=== PATIENT | male | born 1955 | race Caucasian/White ===

== ENCOUNTER 2024-01-03 07:46 | Emergency (ER) | payer MEDICARE, BC, SELFPAY ==
[2024-01-03] VITALS (9 sets, daily range): BP systolic 112–172; BP diastolic 73–90; PULSE 88
--- NOTE | 2024-01-03 08:24 | ED.GENMED ---
History of Present Illness
General
Chief Complaint: Pneumonia Symptoms
Source: patient and spouse
Exam Limitations: none
Time Seen by Provider: 01/03/24 08:07
Nursing documentation reviewed up to this point in time: agreed with
History of Present Illness
History of Present Illness:
Patient is a 68-year-old male with history of clotting disorder lupus anticoagulant. 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 Patient recently was diagnosed with
pneumonia 8 days ago at urgent care. He at that time had a fever of 101.8 and had left lung pneumonia seen on x-ray at urgent care. He was placed on doxycycline has been taking doxycycline 100 mg twice daily for the past week. He reports cough
and fevers are better however now he complains of' lung pain.' He complains of burning in his anterior rib chest area /epigastric region which is constant at times worse with deep breath. He does not feel short of breath. He does report symptoms
seem to start after he was coughing so much. He also reports he feels weak reports his balance seems off because he is weak.
He denies any recent trauma.
Past History
Past History
ED Past Medical History: GERD, HTN and Other (PE, clotting disorder)
ED Past Surgical History: Orthopedic and Other (hiatal hernia)
Social History
Tobacco: Non-smoker
Review of Systems
Review of Systems
Allergies reviewed?: Yes
Other source history: family
All Other Systems: ROS reviewed and negative except as documented in HPI and ROS
Constitutional: Reports fatigue; Denies fever
Cardiac: Reports chest pain (Burning pain to anterior chest ribs)
ABD/GI: Reports no symptoms; Denies abdominal pain, vomiting, diarrhea or black stools
Musculoskeletal: Reports no symptoms
Skin: Reports no symptoms
Psychiatric: Reports no symptoms
Phy Exam
General Physical Exam
General Presentation: no apparent distress
General age: appears stated age
General Skin: warm and dry
General Habitus: normal
General Mental: alert
General Hydration: appears well hydrated
Cardiovascular Exam
Cardiovascular Exam: regular rate/rhythm, no murmur and normal peripheral pulses
Pulmonary Exam
Pulmonary Exam: lungs clear and no respiratory distress
Neurological Exam
Neurological Exam: alert and oriented x3
Musculoskeletal Exam
Musculoskeletal Exam: full ROM
Skin Exam
Skin Exam: normal color and warm/dry
Psychiatric Exam
Psychiatric Exam: normal mood/affect
Course
Orders/Labs/Results
Orders:
Orders
01/03/24 08:32
Cardiac Monitoring- Treatment ONCE
IV Insert/Care/Rem.- Treatment PRN
01/03/24 08:33
Electrocardiogram (*1) Stat
Reason for Study: Other
Other Reason for Exam: pneumonia
EKG- Treatment ONCE
CR Chest - 2 Views Urgent
Comment:
Reason For Exam: chest pain
01/03/24 08:38
Complete Blood Count/With Diff Urgent
Comprehensive Metabolic Panel Urgent
Prothrombin Time Urgent
Troponin I Urgent
01/03/24 11:01
Mag Hydrox/Al Hydrox/Simeth [Maalox] 30 ml Phenobarb/Hyoscy/Atropine/Scop [] 10 ml PO NOW
01/03/24 11:04
Mag Hydrox/Al Hydrox/Simeth [Maalox] 30 ml .ROUTE .STK-MED ONE
Phenobarb/Hyoscy/Atropine/Scop [] 10 ml .ROUTE .STK-MED ONE
01/03/24 11:48
PT Consult [Pt Eval And Treat] Urgent
Treatment: evaluate for unsteady walk
Activity Level: Ambulate
01/03/24 11:50
0.9% Sodium Chloride 1000 ml [Nss] 1,000 ml IV BOLUS
Abnormal Lab Results
01/03/24
08:38
RBC 3.59 L 10^6/uL
(4.70-6.10)
Hgb 11.4 L g/dL
(13.0-18.0)
Hct 33.2 L %
(39.0-52.0)
MCH 31.8 H pg
(27.0-31.0)
Abs Immat Gran (auto) 0.3 H 10^3/uL
(0-0.05)
Absolute Neuts (auto) 7.6 H 10^3/uL
(1.4-6.5)
Absolute Monos (auto) 0.7 H 10^3/uL
(0.1-0.6)
Immature Gran % 3.0 H %
(0-0.5)
Lymphocytes % 15.2 L %
(20.5-51.1)
PT 39.1 H Sec
(11.4-14.6)
Sodium 133 L mmol/L
(135-145)
BUN 23 H mg/dl
(9-20)
Glucose 124 H mg/dl
(70-99)
ALT 103 H U/L
(0-50)
Total Protein 6.1 L g/dl
(6.3-8.2)
01/03/24 08:38
01/03/24 08:38
Vital Signs
Initial and Last Documented VS:
Initial Vital Signs
Temp Pulse Resp BP Pulse Ox
98.3 F 93 16 125/74 97
01/03/24 07:52 01/03/24 07:52 01/03/24 07:52 01/03/24 07:52 01/03/24 07:52
Last Documented Vital Signs
Temp Pulse Resp BP Pulse Ox
98.3 F 83 23 170/82 95
01/03/24 07:52 01/03/24 13:15 01/03/24 11:46 01/03/24 12:29 01/03/24 11:30
Service Dog Trainer consulted with Physician
Service Dog Trainer consulted with physician?: Yes
Name of Physician Consulted: rakesh
MDM/Problems Addressed
Differential Diagnosis Includes:
Not limited to pneumonia muscular pain less likely ACS
MDM/Problems Addressed:
As discussed patient recently had pneumonia completed antibiotics but complains of some chest burning/epigastric burning. Patient feels slightly weak. He presents awake alert no acute distress no shortness of breath cough has since resolved fever
is improved since being on antibiotics. Patient's white count is normal and he is afebrile here with a normal white count stable hemoglobin 11.4. Patient does have clotting disorder and INR is 4.01. Unremarkable electrolytes. No acute findings
on chest x-ray no recent trauma. Regarding patient's INR he reports Dr. Bardales his family doctor manages his Coumadin and he normally like between 2.5 and 3.5. He would like to call his PCP because his PCP normally manages this and gives him
instructions on to lower or increased Coumadin dosing.
. Patient was given GI cocktail which did seem to improve symptoms. This also be a component of muscle pain from coughing. Patient does take reflux medication will have him continue to do this in addition he may take Tylenol he does take chronic
oxycodone for pain which she has at home.
Patient feels that he is slightly diff walking that he 'feel is my core.' he was able to walk with a walker here and does need assistance and with a walker but does want to go home and feels that he is comfortable doing so. Pt lives at home with
family.
*Radiology
Radiology exam reviewed: radiology read reviewed
*Pulse Oximetry
Patient hypoxic: no
*EKG
Interpreted by ED Provider?: Yes
Heart Rate: 79
Rate: normal
Rhythm: sinus
Ischemia: no ischemia
*Critical Care Note
Total Time (30-74mins, 75-104mins- exclusive of procedures): Not Applicable
ED Attending Note
-
Portions of this chart may have been created with voice recognition software.� Occasional wrong word or��sound alike� substitutions may have occurred due to the inherent limitations of voice recognition software.
Discharge Plan
Departure
Patient Disposition: Home (Routine Discharge)
Date of Disposition: 01/03/24
Time of Disposition: 13:36
Patient with high blood pressure during this ER visit?: Yes
Condition: Fair
Covid-19: Not Applicable
Discharge Problem:
Chest pain
Instructions: Chest pain, Chest Pain PCP Follow Up
Prescriptions:
No Action
amitriptyline 150 MG tablet
150 mg PO HS
oxycodone 15 MG tablet
15 mg PO QID
Patient Comments:
06/28/2023: last filled 06/13/23, 120 tabs for 30 days from [id number]
calcium carbonate 500 MG tablet
500 mg PO DAILY@1200
lisinopril 10 MG tablet
10 mg PO QPM
omeprazole 20 MG capsule,delayed release(DR/EC)
20 mg PO BID
eszopiclone [Lunesta] 3 MG tablet
3 mg PO HS
gabapentin 400 mg Capsule
400 mg PO QID
rosuvastatin [Crestor] 40 mg Tablet
40 mg PO QPM
Prostate Health 160-100-100 mg-unit-mcg Tablet
1 tab PO BID
Movantik 25 mg Tablet
25 mg PO DAILY
Rx Instructions:
must be taken on empty stomach; no food 1 hr after or 2-3 hrs before dose
hydrocodone bitartrate [Hysingla ER] 30 mg Tablet,Oral Only,Ext.Rel.24 Hr
30 mg PO HS
Patient Comments:
06/28/2023: last filled 06/13/23, 30 tabs for 30 days from [id number]
warfarin [Jantoven] 4 MG tablet
4 mg PO QPM
cholecalciferol (vitamin D3) 1,000 UNITS tablet
2,000 units PO DAILY@1200
prednisone 50 mg tablet
50 mg PO DAILY Qty: 3 0RF
albuterol sulfate [ProAir HFA] 90 mcg/actuation Hfa Aerosol Inhaler
2 puff INHALATION Q4HPRN PRN (Reason: shortness of breath) Qty: 8.5 0RF
Referrals:
Balwinder Bardales MD [Family Provider] -
Activity Restrictions/Additional Instructions:
As discussed this discomfort may be mild reflux/muscular pain from coughing. Continue reflux medication you may take Tylenol for pain in addition continue to take your pain medication as previously prescribed. Return if any worsening of symptoms
including worsening chest pain shortness of breath. Also as discussed your INR today was elevated at 4.01. Call your family doctor for further Coumadin instructions. Follow-up with your family doctor the next several days for reevaluation of
symptoms.
Interventions
Interventions:
*Risk Screen - Suicide Last Done: 01/03/24 08:00
*General Assessment Last Done: 01/03/24 08:01
*Neglect/Abuse Screening Last Done: 01/03/24 08:00
ED- Fall Risk Assessment Last Done: 01/03/24 08:01
*ED COVID-19 Vaccine History Last Done: 01/03/24 08:00
ED- Cardiac Assessment Last Done: 01/03/24 08:05
ED- Pulmonary Assessment Last Done: 01/03/24 08:06
Discharge Date and Time
Print Language: SINHALA
[2024-01-03 08:52] LABS: % Basophils 0.1 % (0-2); % Eosinophils 0.7 % (0-6); % Lymphocytes 15.2 % (20.5-51.1); % Monocytes 6.4 % (1.7-9.3); % Neutrophils 74.6 % (42.2-75.2); Absolute Eosinophils 0.1 10^3/uL (0-0.7); Absolute Immature Granulocytes 0.3 10^3/uL (0-0.05); Absolute Lymphocytes 1.6 10^3/uL (1.2-3.4); Absolute Monocytes 0.7 10^3/uL (0.1-0.6); Absolute Neutrophils 7.6 10^3/uL (1.4-6.5); Hematocrit 33.2 % (39.0-52.0); Hemoglobin 11.4 g/dL (13.0-18.0); Mean Corp Hgb Conc. 34.3 g/dL (33.0-37.0); Mean Corpuscular Hgb 31.8 pg (27.0-31.0); Mean Corpuscular Volume 92.5 fL (80.0-94.0); Nucleated Red Blood Cells % 0 % (-); Platelet Count 238 10^3/uL (130-400); Red Blood Cell Count 3.59 10^6/uL (4.70-6.10); Red Cell Dist. Width 14.2 % (11.5-14.5); White Blood Cell Count 10.2 10^3/uL (4.8-10.8)
[2024-01-03 09:03] LABS: INR 4.01; PT 39.1 Sec (11.4-14.6)
[2024-01-03 09:18] LABS: ALT (SGPT) 103 U/L (0-50); AST (SGOT) 46 U/L (17-59); Albumin 3.7 g/dl (3.5-5.0); Alkaline Phosphatase 83 U/L (38-126); Blood Urea Nitrogen 23 mg/dl (9-20); Calcium 9.4 mg/dl (8.4-10.2); Carbon Dioxide 28 mmol/L (22-30); Chloride 99 mmol/L (98-107); Glucose 124 mg/dl (70-99); Potassium 4.1 mmol/L (3.5-5.1); Sodium 133 mmol/L (135-145); Total Bilirubin 0.5 mg/dl (0.2-1.3); Total Protein 6.1 g/dl (6.3-8.2); eGFR > 60.00
[2024-01-03 09:19] LABS: Troponin I < 0.012 ng/ml
[2024-01-03] MEDS: MAALOX 40 PO (11:05)
[2024-01-03] MEDS: NSS 1000 IV (11:59)
== END 2024-01-03 13:55 | disposition home or self-care (01) ==
LOC: EMR 07:46
PROVIDERS: Nurse Practitioner; EMERGENCY PHYSICIAN Student in an Organized Health Care Education/Training Program; FAMILY PHYSICIAN Family Medicine
DX: R07.89 Other chest pain (principal); R51.9 Headache, unspecified; R53.1 Weakness; J18.9 Pneumonia, unspecified organism; I10 Essential (primary) hypertension; K21.9 Gastro-esophageal reflux disease without esophagitis; K44.9 Diaphragmatic hernia without obstruction or gangrene; E78.5 Hyperlipidemia, unspecified; D68.52 Prothrombin gene mutation; G62.9 Polyneuropathy, unspecified; J44.9 Chronic obstructive pulmonary disease, unspecified; Z86.711 Personal history of pulmonary embolism; Z86.16 Personal history of COVID-19; Z79.01 Long term (current) use of anticoagulants; M43.22 Fusion of spine, cervical region
CPT/HCPCS: 99284; 96360; 71046; 80053; 84484; 85025; 85610; 93005